=== PATIENT | male | born 1965 | race Caucasian/White ===

== ENCOUNTER 2018-12-31 11:42 | Outpatient (CLI) | payer OTHER ==
--- NOTE | 2018-12-31 12:05 | RAD ---
XR Foot Lt 3 View STANDARD HISTORY: Injury, left foot pain FINDINGS: No fracture or dislocation is identified.
--- NOTE | 2018-12-31 14:15 | RAD ---
LEFT ANKLE 3 VIEWS: Date: 12/31/18 HISTORY: Injury. FINDINGS: Soft tissue swelling laterally. No evidence of fracture. IMPRESSION: No acute fracture. POS: [facility]
== END 2018-12-31 11:43 | disposition home or self-care (01) ==
LOC: MADRAD 11:42
PROVIDERS: ATTEND Family Medicine
DX: S99.912A Unspecified injury of left ankle, initial encounter (principal); S99.922A Unspecified injury of left foot, initial encounter

== ENCOUNTER 2021-08-14 13:47 | Emergency (ER) | payer OTHER ==
[2021-08-14] MEDS ORDERED: Boostrix 0.5 ML (Tdap) VIAL ONE (15:00)
[2021-08-14] MEDS ORDERED: Orphenadrine Citrate 60 MG/2 ML VIAL ONE (15:00)
== END 2021-08-14 15:23 | disposition home or self-care (01) ==
LOC: MADERS 13:47
DX: S06.0X0A Concussion without loss of consciousness, initial encounter (principal); S13.9XXA Sprain of joints and ligaments of unspecified parts of neck, initial encounter; V92.09XA Drowning and submersion due to fall off unspecified watercraft, initial encounter; Z23 Encounter for immunization; I25.2 Old myocardial infarction; E78.00 Pure hypercholesterolemia, unspecified; I10 Essential (primary) hypertension; E11.9 Type 2 diabetes mellitus without complications; Z87.891 Personal history of nicotine dependence; Z79.899 Other long term (current) drug therapy; Z79.84 Long term (current) use of oral hypoglycemic drugs
CPT/HCPCS: 36416; 70450; 72125; 90471; 90715; 96372; J2360

== ENCOUNTER 2021-08-16 08:54 | Outpatient (CLI) | payer OTHER ==
[2021-08-16 09:36] LABS: ALT (SGPT) 19 U/L (8-55); AST (SGOT) 14 U/L (5-34); Albumin 4.2 g/dL (3.5-5.0); Alkaline Phosphatase 64 U/L (40-110); Anion Gap 17 mmol/L (10-20); BUN (Urea Nitrogen) 10 mg/dL (8.4-25.7); Bilirubin, Total 0.4 mg/dL (0.2-1.2); Calc. Creatinine Clearance 0 mL/min (70-130); Calcium 9.6 mg/dL (7.8-10.44); Carbon Dioxide 25 mmol/L (22-29); Cardiac Risk 4.9 (Less than 4.5); Chloride 102 mmol/L (98-107); Cholesterol 172 mg/dl (< 200 Desired); Globulin 3.2 g/dL (2.4-3.5); Glucose 110 mg/dL (70-105); HDL Cholesterol 35 mg/dL (>60 Neg Risk); LDL Cholesterol, Calculated 115 mg/dL; Potassium 4.5 mmol/L (3.5-5.1); Protein, Total 7.4 g/dL (6.0-8.3); Sodium 139 mmol/L (136-145); Triglycerides 109 mg/dL (Less than 150)
[2021-08-16 16:09] LABS: Hemoglobin A1c 5.6 % (4.0-6.0)
== END 2021-08-16 08:55 | disposition home or self-care (01) ==
LOC: MADLAB 08:54
PROVIDERS: ATTEND Family Medicine
DX: E78.5 Hyperlipidemia, unspecified (principal); E11.9 Type 2 diabetes mellitus without complications
CPT/HCPCS: 36415; 80053; 80061; 83036